=== PATIENT | male | born 1980 | race Caucasian/White ===

== ENCOUNTER 2018-10-06 13:11 | Emergency (ER) | payer BC ==
[~2018-10-06] VITALS: Ht 175.3 cm; Wt 113.4 kg
[2018-10-06] MEDS ORDERED: LISD70CA PO (13:36)
[2018-10-06] MEDS ORDERED: OLAN20TA3 PO (13:36)
[2018-10-06] MEDS ORDERED: NEBI20TA2 PO (13:36)
[2018-10-06] MEDS ORDERED: ESCI20TA PO (13:36)
[2018-10-06] MEDS ORDERED: ALIS300T PO (13:36)
[2018-10-06] MEDS ORDERED: HYDROCODONE/APAP 10-325 MG TABLET ONE (15:28)
[2018-10-06] MEDS ORDERED: TRAMADOL HCL 50 MG TABLET PO ONE (15:30)
[2018-10-06] MEDS ORDERED: HYDROCODONE/APAP 10-325 MG TABLET PO ONE (15:30)
[2018-10-06] MEDS ORDERED: TRAMADOL HCL 50 MG TABLET ONE (15:31)
[2018-10-06] MEDS ORDERED: COLCHICINE 0.6 MG TABLET PO ONE (16:15)
[2018-10-06] MEDS ORDERED: COLCHICINE 0.6 MG TABLET ONE (16:18)
--- NOTE | 2018-10-06 16:34 | NUR ---
PT WAS D/C'D TO HOME. D/C INSTRUCTIONS GIVEN TO THE PT.
[2018-10-06 16:35] VITALS: BP 136/88
== END 2018-10-06 16:36 | disposition home or self-care (01) ==
LOC: ER 13:11
DX: M10.9 Gout, unspecified (principal); Z88.5 Allergy status to narcotic agent; Z79.899 Other long term (current) drug therapy
CPT/HCPCS: 36415; 73630; 84550; A4663